=== PATIENT | male | born 1960 | race Caucasian/White ===

== ENCOUNTER 2019-10-22 13:29 | Emergency (ER) | payer OTHER, SELFPAY ==
--- NOTE | ~2019-10-22 | XR_ITS ---
EXAMINATION: XR wrist LT min 3V DATE: 10/22/2019 14:06 INDICATION: Left wrist pain. Injury. TECHNIQUE: 4 views of left wrist were obtained. COMPARISON: None. FINDINGS: Bone alignment is normal. No fracture. There is mild osteoarthritis of first carpometacarpa l joint and first and second metacarpophalangeal joints. IMPRESSION: 1. Mild polyarticular osteoarthritis. Reviewed, dictated and finalized at location A.
--- NOTE | ~2019-10-22 | XR_ITS ---
EXAMINATION: XR ankle RT min 3V DATE: 10/22/2019 14:05 INDICATION: Right ankle injury and pain. TECHNIQUE: 4 views of right ankle were obtained. COMPARISON: None. FINDINGS: Bone alignment is normal. There is a small calcification distal to lateral malleolus. There is mild midfoot osteoarthritis. There are enthesophytes at posterior and plantar aspects of calcanea l tuberosity. Ankle soft tissue swelling is noted. IMPRESSION: 1. Small calcification distal to lateral malleolus that may be an acute avulsion fracture or a findin g from old injury. Reviewed, dictated and finalized at location A. IMPRESSION: 1. Small calcification distal to lateral malleolus that may be an acute avulsio n fracture or a finding from old injury.
[2019-10-22 13:40] VITALS: BP 135/68; PULSE 83; RESP 16; TEMP 36.6; O2SAT 99
--- NOTE | 2019-10-22 13:43 | ED.UPPEXIN ---
HPI - Extremity Injury (Upper) General Chief Complaint: Extremity Injury, Upper Stated Complaint: right foot injury/left hand wrist injury Time Seen by Provider: 10/22/19 13:43 Source: patient and RN notes reviewed History of Present Illness HPI narrative: Patient is a 58-year-old male who presents the urgent care with complaints of right foot injury as well as left wrist. Patient states that he fell on Monday, twisting his left ankle and falling down to his left wrist and elbow. Patient states he initially had a lot of elbow and left shoulder pain which is subsided. Patient has been using Tylenol and ice and elevating. Denies any loss of consciousness or hitting his head. No other acute complaints. No acute distress noted. Patient read the plan of care. Related Data Home Medications Medication Instructions Recorded Confirmed aspirin [Aspir-81] 81 mg PO DAILY 10/22/19 10/22/19 atorvastatin 20 mg PO DAILY 10/22/19 10/22/19 bupropion HCl 300 mg PO QAM 10/22/19 10/22/19 empagliflozin [Jardiance] 10 mg PO DAILY 10/22/19 10/22/19 exenatide microspheres [Bydureon] 2 mg SUBCUT WEEKLY 10/22/19 10/22/19 gabapentin 800 mg PO HS 10/22/19 10/22/19 glimepiride 2 mg PO DAILY 10/22/19 10/22/19 icosapent ethyl [Vascepa] 2 g PO BID 10/22/19 10/22/19 insulin glargine [Basaglar KwikPen 60 unit SUBCUT DAILY 10/22/19 10/22/19 U-100 Insulin] lisinopril 5 mg PO DAILY 10/22/19 10/22/19 metformin 1,000 mg PO BID 10/22/19 10/22/19 metoprolol succinate 50 mg PO DAILY 10/22/19 10/22/19 omeprazole magnesium [Prilosec OTC] 20 mg PO DAILY 10/22/19 10/22/19 sertraline 150 mg PO DAILY 10/22/19 10/22/19 spironolactone 25 mg PO DAILY 10/22/19 10/22/19 Allergies Allergy/AdvReac Type Severity Reaction Status Date / Time Penicillins Allergy Unknown Diarrhea Verified 10/22/19 13:51 Contrast Media Allergy Unknown Anaphylaxis Uncoded 10/22/19 13:51 Review of Systems Review of Systems: Narrative: CONSTITUTIONAL: Denies fever, chills, or sweats. EYES: Denies visual changes, redness, or discharge. ENT: Denies rhinorrhea, congestion, sore throat, or otalgia. CARDIOVASCULAR: Denies chest pain, palpitations, or edema. RESPIRATORY: Denies cough or dyspnea. GASTROINTESTINAL: Denies abdominal pain, nausea, vomiting, or diarrhea. GENITOURINARY: Denies dysuria or hematuria. SKIN: Denies rash or itching. MUSCULOSKELETAL: Reports of right ankle and foot pain and swelling, reports of left wrist pain NEUROLOGIC: Denies headache, numbness, or weakness. All other systems reviewed are negative, except as documented in HPI. PMFSH Comments At the time of my signature, I reviewed and agree with the nursing past medical, surgical, social, and family history. There is no relevant family history pertinent to the patient complaint. Exam Narrative: Exam Narrative: GENERAL: This is a well-nourished, well-developed patient, in no apparent distress. HEAD: normocephalic, atraumatic. EYES: PERRL. Sclera clear/white. Vision is grossly intact. EARS: External ears normal NOSE: External nose normal with no obvious nasal discharge, nares without redness, no rhinorrhea. THROAT: Mucous membranes moist NECK: Neck supple SKIN: warm, intact with no suspicious lesions or rash, good texture and turgor. NEURO: awake, alert, and oriented to person, place and time. There were no obvious focal neurologic abnormalities. EXTREMITIES: Mild to moderate ecchymosis and edema noted to the lateral right malleolus extending into the right lateral foot with mild point tenderness to the lateral malleolus. Range of motion to right lower extremity within normal limits with positive strong right pedal pulse with capillary refill less than 2 seconds. Mild tenderness to distal radius of the left wrist with normal range of motion, without ecchymosis or edema. Positive strong left radial pulse with capillary refill less than 2 seconds. No obvious deformity or fractures noted. Course Vital Signs Vital signs: Vital Si
== END 2019-10-22 14:42 | disposition home or self-care (01) ==
PROVIDERS: Emergency Provider Nurse Practitioner Family; PCP Internal Medicine
DX: M19.032 Primary osteoarthritis, left wrist (principal); S82.64XA Nondisplaced fracture of lateral malleolus of right fibula, initial encounter for closed fracture; W19.XXXA Unspecified fall, initial encounter
CPT/HCPCS: 73110; 73610; 99204; G0463